=== PATIENT | male | born 1960 | race Caucasian/White ===

== ENCOUNTER 2024-03-26 13:43 | Emergency (ER) | payer MEDICARE, MEDICAID, SELFPAY ==
[2024-03-26 13:58] VITALS: BP 156/109
--- NOTE | 2024-03-26 14:34 | ED.GENMED ---
History of Present Illness
General
Chief Complaint: Crisis Evaluation
Source: other (mold worker)
Time Seen by Provider: 03/26/24 14:03
Travel History
Have you had any contact with someone who has COVID-19?: No
Do you have any symptoms of coronavirus? Fever > 100 degrees, chills, cough, shortness of breath, sore throat, loss of taste or smell, muscle aches, or headache?: No
History of Present Illness
History of Present Illness:
53-year-old male apparently lives in [place] but police were called while he was getting his car and [employer]. Patient apparently has been having flight of ideas might have been hitting his car with a [place] hammer. Unknown medical history.
Patient has no specific complaints.
Past History
Past History
ED Past Medical History: None and Psychiatric (Manic psychosis 2014)
Social History
Tobacco: Non-smoker
Alcohol: None
Family History
Family History: Unable to obtain
Review of Systems
Review of Systems
All Other Systems: Not applicable
Respiratory: Reports no symptoms
Cardiac: Reports no symptoms
ABD/GI: Reports no symptoms
Phy Exam
Physical Exam
Physical Exam:
GENERAL: Alert and oriented in no apparent distress
EYE: Orbits normal.
NECK: Supple
CARDIAC: Regular rate and rhythm without any obvious murmurs.
LUNGS: Clear breath sounds,normal
ABDOMEN: Soft, without focal tenderness or distention
NEUROLOGICAL: Alert and oriented , grossly non-focal
SKIN: Warm and dry, no rash or lesion, no discoloration, skin intact.
MUSCULOSKELETAL: No edema,no deformity.Good color
PSYCH: Very flight of ideas
Course
Orders/Labs/Results
Orders:
Orders
03/26/24 14:50
Alcohol Urgent
Basic Metabolic Panel Urgent
Complete Blood Count/With Diff Urgent
Urine Drug Abuse Screen Urgent
Date Specimen was Collected: 03/26/24
Time Specimen was Collected: 14:24
Abnormal Lab Results
03/26/24
14:50
MCH 31.4 H pg
(27.0-31.0)
Absolute Neuts (auto) 8.1 H 10^3/uL
(1.4-6.5)
Absolute Monos (auto) 0.8 H 10^3/uL
(0.1-0.6)
Neutrophils % 76.9 H %
(42.2-75.2)
Lymphocytes % 14.3 L %
(20.5-51.1)
Potassium 5.2 H mmol/L
(3.5-5.1)
BUN 24 H mg/dl
(9-20)
Glucose 216 H mg/dl
(70-99)
Calcium 10.6 H mg/dl
(8.4-10.2)
Ur Tricyclics Screen Positive H
(Negative)
03/26/24 14:50
03/26/24 14:50
Vital Signs
Initial and Last Documented VS:
Initial Vital Signs
Temp Pulse Resp BP Pulse Ox
98.1 F 83 20 156/109 99
03/26/24 13:58 03/26/24 13:58 03/26/24 13:58 03/26/24 13:58 03/26/24 13:58
Last Documented Vital Signs
Temp Pulse Resp BP Pulse Ox
98.1 F 90 19 144/101 97
03/26/24 13:58 03/26/24 16:01 03/26/24 16:01 03/26/24 16:01 03/26/24 16:01
*Critical Care Note
Total Time (30-74mins, 75-104mins- exclusive of procedures): Not Applicable
Data Reviewed
Review of Other/Old Records Reveals: Other (Psychiatry consult 2015)
Update Note
Update Note:
Medically stable and medically cleared. Minimal hyperglycemia. This just wants follow-up
ED Attending Note
-
Portions of this chart may have been created with voice recognition software.� Occasional wrong word or��sound alike� substitutions may have occurred due to the inherent limitations of voice recognition software.
Discharge Plan
Departure
Patient Disposition: Psych Facility
Date of Disposition: 03/26/24
Time of Disposition: 15:46
Patient with high blood pressure during this ER visit?: Yes
Discharge Problem:
Manic psychosis, Hyperglycemia
Instructions: High Blood Sugar, Adult ED, BLOOD PRESSURE
Referrals:
UNKNOWN - PT NOT,INTERVIEWE [Family Provider] -
Activity Restrictions/Additional Instructions:
Follow your blood sugar up with your regular physician
Discharge Date and Time
Print Language: BAHRAINI
[2024-03-26 15:01] LABS: % Basophils 0.3 % (0-2); % Eosinophils 0.4 % (0-6); % Immature Granulocytes 0.4 % (0-0.5); % Lymphocytes 14.3 % (20.5-51.1); % Monocytes 7.7 % (1.7-9.3); % Neutrophils 76.9 % (42.2-75.2); Absolute Lymphocytes 1.5 10^3/uL (1.2-3.4); Absolute Monocytes 0.8 10^3/uL (0.1-0.6); Absolute Neutrophils 8.1 10^3/uL (1.4-6.5); Hematocrit 44.8 % (39.0-52.0); Hemoglobin 15.6 g/dL (13.0-18.0); Mean Corp Hgb Conc. 34.8 g/dL (33.0-37.0); Mean Corpuscular Hgb 31.4 pg (27.0-31.0); Mean Corpuscular Volume 90.1 fL (80.0-94.0); Mean Platelet Volume 9.4 fL (7.4-10.4); Nucleated Red Blood Cells % 0 % (-); Platelet Count 326 10^3/uL (130-400); Red Blood Cell Count 4.97 10^6/uL (4.70-6.10); Red Cell Dist. Width 12.7 % (11.5-14.5); White Blood Cell Count 10.5 10^3/uL (4.8-10.8)
[2024-03-26 15:16] LABS: Amphetamines Negative (Negative); Barbiturates Negative (Negative); Benzodiazepines Negative (Negative); Buprenorphine Negative (Negative); Cocaine Negative (Negative); Marijuana Negative (Negative); Methadone Negative (Negative); Methamphetamines Negative (Negative); Opiates Negative (Negative); Phencyclidine Negative (Negative); Tricyclic Antidepressants Positive (Negative)
[2024-03-26 15:41] LABS: Alcohol None Detected; Blood Urea Nitrogen 24 mg/dl (9-20); Calcium 10.6 mg/dl (8.4-10.2); Carbon Dioxide 23 mmol/L (22-30); Chloride 107 mmol/L (98-107); Glucose 216 mg/dl (70-99); Potassium 5.2 mmol/L (3.5-5.1); Sodium 143 mmol/L (135-145); eGFR > 60.00
[2024-03-26 16:01] VITALS: BP 144/101
== END 2024-03-26 16:30 ==
LOC: EMR 13:43
PROVIDERS: EMERGENCY PHYSICIAN Emergency Medicine
DX: F30.2 Manic episode, severe with psychotic symptoms (principal); R03.0 Elevated blood-pressure reading, without diagnosis of hypertension; Z53.29 Procedure and treatment not carried out because of patient's decision for other reasons; R73.9 Hyperglycemia, unspecified; Z88.8 Allergy status to other drugs, medicaments and biological substances
CPT/HCPCS: 99283; 80048; 80306; 82077; 85025

== ENCOUNTER 2024-03-26 23:57 | Emergency (ER) | payer MEDICARE, MEDICAID, SELFPAY ==
[2024-03-27 00:03] VITALS: BP 151/95
[2024-03-27] MEDS: ZYPREXA 10 MG IM (00:19)
--- NOTE | 2024-03-27 00:25 | ED.GENMED ---
History of Present Illness
General
Chief Complaint: Change in Mental Status
Time Seen by Provider: 03/27/24 00:09
Travel History
Have you had any contact with someone who has COVID-19?: Unable to Answer
Do you have any symptoms of coronavirus? Fever > 100 degrees, chills, cough, shortness of breath, sore throat, loss of taste or smell, muscle aches, or headache?: Unable to Answer
History of Present Illness
History of Present Illness:
HPI: Patient was found walking the streets with nonsensical speech. He was sent here for further evaluation. He reportedly takes Seroquel and Depakote. He is currently is providing no meaningful history. The patient was seen here earlier in the
day and initially was going to be placed as a 201 but he either eloped or left AMA.
EXAM:
GENERAL: Nonsensical speech
HEENT: Moist oral mucosa
CARDIOVASCULAR: No murmurs, normal heart rate, regular rhythm, No chest wall tenderness
PULMONARY: No respiratory distress, breath sounds are clear and equal
ABDOMEN: Soft with no peritoneal signs, no tenderness
NEUROLOGIC: Excellent strength all extremities, no coordination deficits
PSYCHIATRIC: The patient clearly lacks insight and judgment, does not have the capacity to make his own decisions, initially started talking about 'Taoism reformist'
EXTREMITIES: Nontender, no edema, moves all extremities equally
SKIN: No rash, no lesions
TIME OF INITIAL ENCOUNTER: 12:15 AM
NUMBER AND COMPLEXITY OF PROBLEMS ADDRESSED AT THE ENCOUNTER
� Chronic conditions affecting care: Unclear past medical history but reportedly takes Seroquel and Depakote
� Acute Exacerbation and/or Progression of Chronic Illness: Unclear timing of symptoms
� Differential Diagnosis includes: Acute psychosis, lab abnormality, substance use
AMOUNT AND/OR COMPLEXITY OF DATA TO BE REVIEWED AND ANALYZED
� I performed an independent evaluation of and my interpretation is:
EKG:
CT:
X-rays:
Laboratory Studies: White count 8.5, hemoglobin 13.7, bicarb 17, BUN 30, glucose 294, Depakote 31, alcohol undetected
Other:
� Review of other/old records: Yesterday, UDS was positive for tricyclics; I reviewed psychiatry note from 2014 and at that time he was here as a 302 and was manic psychotic at that time
� Clinical information was obtained by an independent historian: EMS
� Prescriptions/Medications Considered but not given:
� Further testing considered but not performed:
RISK OF COMPLICATIONS AND/OR MORBIDITY OR MORTALITY OF PATIENT MANAGEMENT
� Social determinants of health affecting care: Unclear about his social situation at this time including where he lives but there is report that he is living in [place]
� Discussion with other providers: Crisis
� Escalation of care including admission/observation vs risk of discharge considered: 302 petition from earlier indicated the patient was outside of a car [employer] business and started striking the windshield with a crowbar.
Low bicarb noted along with higher BUN and high blood sugar. He has been very difficult essentially refusing to be accessed. Trying to rehydrate orally. The patient did tolerate water orally. Seems to be a delay with response to Zyprexa however
as of 3:20 AM along with IM Ativan, he is much more calm. Reassessment at 5:30 AM, the patient remains calm/sleeping in no distress. Crisis currently bed searching.
Past History
Past History
ED Past Medical History: None and Psychiatric (Manic psychosis 2014)
Social History
Tobacco: Non-smoker
Alcohol: None
Family History
Family History: Unable to obtain
Phy Exam
Physical Exam
Physical Exam:
See HPI
Course
Orders/Labs/Results
Orders:
Orders
03/27/24 00:07
Alcohol Urgent
Complete Blood Count/With Diff Urgent
Comprehensive Metabolic Panel Urgent
Depakane Urgent
03/27/24 00:13
Olanzapine [Zyprexa] 10 mg .ROUTE .STK-MED ONE
03/27/24 00:14
Olanzapine [Zyprexa] 10 mg IM NOW STA
03/27/24 00:15
Sterile Water [Sterile Water For Injection] 10 ml .ROUTE .STK-MED ONE
03/27/24 00:28
Add On- LAB Urgent
Tests Added?: alcohol
03/27/24 00:43
Crisis Consult Urgent
Reason for Consult: psychosis
03/27/24 01:43
Lorazepam [Ativan] 1 mg IM NOW STA
Abnormal Lab Results
03/27/24
00:07
RBC 4.37 L 10^6/uL
(4.70-6.10)
MCH 31.4 H pg
(27.0-31.0)
Abs Immat Gran (auto) 0.1 H 10^3/uL
(0-0.05)
Absolute Monos (auto) 0.9 H 10^3/uL
(0.1-0.6)
Immature Gran % 1.2 H %
(0-0.5)
Lymphocytes % 18.4 L %
(20.5-51.1)
Monocytes % 10.8 H %
(1.7-9.3)
Carbon Dioxide 17 L mmol/L
(22-30)
BUN 30 H mg/dl
(9-20)
Glucose 294 H mg/dl
(70-99)
Valproic Acid 30.9 L ug/ml
(50.0-120.0)
03/27/24 00:07
03/27/24 00:07
Vital Signs
Initial and Last Documented VS:
Initial Vital Signs
Pulse Resp BP Pulse Ox
122 22 151/95 94
03/27/24 00:03 03/27/24 00:03 03/27/24 00:03 03/27/24 00:03
Last Documented Vital Signs
Temp Pulse Resp BP Pulse Ox
98.9 F 90 20 151/95 96
03/27/24 00:52 03/27/24 04:35 03/27/24 04:35 03/27/24 00:03 03/27/24 04:35
*Critical Care Note
Total Time (30-74mins, 75-104mins- exclusive of procedures): Not Applicable
ED Attending Note
-
Portions of this chart may have been created with voice recognition software.� Occasional wrong word or��sound alike� substitutions may have occurred due to the inherent limitations of voice recognition software.
Discharge Plan
Departure
Patient Disposition: Psych Facility
Date of Disposition: 03/27/24
Time of Disposition: 01:27
Discharge Problem:
Psychosis
Prescriptions:
No Action
Unobtainable
0
Referrals:
UNKNOWN - PT DOES,NOT KNOW [Family Provider] -
Interventions
Interventions:
*Risk Screen - Suicide Last Done: 03/27/24 00:23
*General Assessment Last Done: 03/27/24 00:23
*Neglect/Abuse Screening Last Done: 03/27/24 00:23
ED- Pulmonary Assessment Last Done: 03/27/24 03:05
ED-Psychological Assessment Last Done: 03/27/24 00:26
ED- Neurological Assessment Last Done: 03/27/24 00:26
ED- Cardiac Assessment Last Done: 03/27/24 03:05
Discharge Date and Time
Print Language: BULGARIAN
[2024-03-27 00:38] LABS: Depakane 30.9 ug/ml (50.0-120.0)
[2024-03-27 00:41] LABS: % Basophils 0.2 % (0-2); % Eosinophils 0.4 % (0-6); % Immature Granulocytes 1.2 % (0-0.5); % Lymphocytes 18.4 % (20.5-51.1); % Monocytes 10.8 % (1.7-9.3); Absolute Immature Granulocytes 0.1 10^3/uL (0-0.05); Absolute Lymphocytes 1.6 10^3/uL (1.2-3.4); Absolute Monocytes 0.9 10^3/uL (0.1-0.6); Absolute Neutrophils 5.9 10^3/uL (1.4-6.5); Hematocrit 39.3 % (39.0-52.0); Hemoglobin 13.7 g/dL (13.0-18.0); Mean Corp Hgb Conc. 34.9 g/dL (33.0-37.0); Mean Corpuscular Hgb 31.4 pg (27.0-31.0); Mean Corpuscular Volume 89.9 fL (80.0-94.0); Mean Platelet Volume 9.8 fL (7.4-10.4); Nucleated Red Blood Cells % 0 % (-); Platelet Count 285 10^3/uL (130-400); Red Blood Cell Count 4.37 10^6/uL (4.70-6.10); Red Cell Dist. Width 12.9 % (11.5-14.5); White Blood Cell Count 8.5 10^3/uL (4.8-10.8)
[2024-03-27 00:48] LABS: ALT (SGPT) 24 U/L (0-50); AST (SGOT) 29 U/L (17-59); Albumin 4.3 g/dl (3.5-5.0); Alkaline Phosphatase 84 U/L (38-126); Blood Urea Nitrogen 30 mg/dl (9-20); Calcium 10.1 mg/dl (8.4-10.2); Carbon Dioxide 17 mmol/L (22-30); Chloride 106 mmol/L (98-107); Glucose 294 mg/dl (70-99); Potassium 3.9 mmol/L (3.5-5.1); Sodium 138 mmol/L (135-145); Total Bilirubin 0.6 mg/dl (0.2-1.3); Total Protein 6.6 g/dl (6.3-8.2); eGFR > 60.00
[2024-03-27 01:03] LABS: Alcohol None Detected
[2024-03-27] MEDS: ATIVAN 1 MG IM (01:47)
[2024-03-27 14:10] VITALS: BP 143/85
--- NOTE | 2024-03-27 15:30 | W.PN.UPDATE ---
Update Note
Progress Note Update
63 y/o man who has presented to in past in manic psychotic state came to hospital yesterday, left and was brought back. Apparently was on top of a car with a crowbar. Is 201 voluntary with backup 302. Apparently difficulty confirming
his insurance.
He has been given Zyprexa.
Pt. has hypertension and diabetes. unclear if these are being treated. Reports being on Depakote ER 2000 mg. HS and Seroquel 1200 mg HS (which is highly unlikely).. 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
Pt. was asleep in Crisis I. When I aroused him he was able to converse, but speech is garbled and he is unable to provide too much useful information. He said he has epilepsy and not bipolar disorder. Unable to obtain much else from him
I will order Depakote ER 2000 mg. HS; Seroquel 300 mg. HS for now. Will order valproate level and CMP. May need stabilization of blood sugar.
Diagnosis: Bipolar Disorder, Manic, with psychotic features.
[2024-03-27 17:13] LABS: ALT (SGPT) 27 U/L (0-50); AST (SGOT) 35 U/L (17-59); Albumin 4.3 g/dl (3.5-5.0); Alkaline Phosphatase 86 U/L (38-126); Blood Urea Nitrogen 23 mg/dl (9-20); Calcium 10.1 mg/dl (8.4-10.2); Carbon Dioxide 28 mmol/L (22-30); Chloride 103 mmol/L (98-107); Glucose 279 mg/dl (70-99); Potassium 4.6 mmol/L (3.5-5.1); Sodium 139 mmol/L (135-145); Total Bilirubin 0.6 mg/dl (0.2-1.3); Total Protein 6.7 g/dl (6.3-8.2); eGFR > 60.00
[2024-03-27] MEDS: SEROQUEL 300 MG PO (21:19)
[2024-03-27] MEDS: DEPAKOTE ER (24 HR RELEASE) 2000 MG PO (21:19)
[2024-03-27 21:24] VITALS: BP 139/91
[2024-03-28 06:28] LABS: Depakane 85.5 ug/ml (50.0-120.0)
[2024-03-28 07:32] VITALS: BP 147/97
[2024-03-28 08:00] VITALS: BP 125/76; BMI 31.2
--- NOTE | 2024-03-28 15:16 | W.PN.UPDATE ---
Update Note
Progress Note Update
Mn likely with Bipolar Disorder Juany for follow-up Is on 302 awaiting a bed which may be difficult as he is from [place] and has exhausted his Medicare days. Today he is out of bed, talkative and friendly. Mood hypomanic. Delusional about his
condition. Possible he has mild TD.
Confirmed his mother has dementia. 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
Valproate level 85.5. Continue Seroquel 300 mg and Depakote ER 2000 mg. both HS.
Will order FBS and A1c for tomorrow morning.
Psychiatry will follow.
[2024-03-28 21:31] VITALS: BP 160/100
[2024-03-28] MEDS: SEROQUEL 300 MG PO (22:04)
[2024-03-28] MEDS: DEPAKOTE ER (24 HR RELEASE) 2000 MG PO (22:05)
[2024-03-29 06:35] VITALS: BP 149/90
[2024-03-29 06:50] LABS: Blood Urea Nitrogen 15 mg/dl (9-20); Calcium 9.8 mg/dl (8.4-10.2); Carbon Dioxide 25 mmol/L (22-30); Chloride 105 mmol/L (98-107); Estimated Creatinine Clearance 107 ml/min; Glucose 279 mg/dl (70-99); Potassium 4.3 mmol/L (3.5-5.1); Sodium 138 mmol/L (135-145); eGFR > 60.00
[2024-03-29 10:16] LABS: Glycohemoglobin (HgbA1c) 9.6 % (4.0-5.6)
--- NOTE | 2024-03-29 13:30 | ED.CRISIS ---
ED Crisis Note
ED Crisis Note
Subjective:
No acute complaints. Feels well
Objective:
Sitting up no distress speech normal. Nontoxic.
Assessment/Plan:
Labs show elevated blood sugar. Patient clearly has had chronic hyperglycemia. It looks like he likely has been on metformin. Will start twice a day and follow Accu-Cheks
--- NOTE | 2024-03-29 14:56 | W.PN.UPDATE ---
Update Note
Progress Note Update
Pt seen, reviewed 302. Pt states he did not sleep for a couple nights, was not consistent with taking mediations. He reports long history of Bipolar I d/o, states he has been on Depakote at current dose of 2000 mg HS for '30 years.' Pt reports he
was stable for 12 years without hospitalizations on Serentil- antipsychotic med no longer available since 2003 (confirmed by internet search). Pt states he was tried on Thorazine, Invega with long-acting injection, and others, but does very well on
Seroquel. Pt advised of risk of increased blood sugar, reports he is on Metformin and Metoprolol, states he is 'accepting the inevitable'. Pt mildly tangential, expansive, religiously preoccupied, but calm, cooperative, pleasant. Pt joking about
'Iranian chess' during our conversation. 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
Imp: Bipolar disorder, manic, improving with med resumption. Pt does not present the need for a 303- involuntary commitment extension
Rec: continue to stabilize on 302. Pt has not been placed due to having only [facility] coverage. Will likely recommend discharge tomorrow if current improvement continues
will follow
[2024-03-29 17:19] LABS: Glucose - Point of Care 394 mg/dl (70-99)
[2024-03-29] MEDS: GLUCOPHAGE 500 MG PO (17:21)
[2024-03-29] MEDS: SEROQUEL 300 MG PO (22:42)
[2024-03-29] MEDS: DEPAKOTE ER (24 HR RELEASE) 2000 MG PO (22:43)
[2024-03-29 22:48] VITALS: BP 135/83
[2024-03-30] MEDS: GLUCOPHAGE 500 MG PO (09:09)
[2024-03-30 09:14] VITALS: BP 137/91
[2024-03-30 09:15] LABS: Glucose - Point of Care 192 mg/dl (70-99)
--- NOTE | 2024-03-30 12:21 | W.PN.UPDATE ---
Update Note
Progress Note Update
Pt seen, continues to improve. Pt alert, oriented, with pleasant affect, interacting appropriately. Speech coherent, thought goal-directed. Pt cooperative with treatment, taking medications, denies side effects/none evident. Reviewed with Crisis
staff, who confirmed pt's outpatient program. Pt states his keys were placed outside of his home. No signs of acute masha or psychosis at this point.
Imp: Bipolar disorder, manic, stabilized with medication resumption. Pt does not present the need for a 303/continued involuntary commitment
Rec: Pt is psychiatrically stable for discharge from the 302, to follow up with outpatient mental health provider
== END 2024-03-30 14:08 ==
LOC: EMR 23:57
PROVIDERS: Psychiatry & Neurology Psychiatry; EMERGENCY PHYSICIAN Emergency Medicine; OTHER PHYSICIAN Psychiatry & Neurology Psychiatry
DX: F29 Unspecified psychosis not due to a substance or known physiological condition (principal); F31.2 Bipolar disorder, current episode manic severe with psychotic features; E11.65 Type 2 diabetes mellitus with hyperglycemia; Z91.128 Patient's intentional underdosing of medication regimen for other reason; I10 Essential (primary) hypertension; Z88.8 Allergy status to other drugs, medicaments and biological substances
CPT/HCPCS: 99284; 96372 ×2; 80048; 80053; 80164; 80306; 82077; 82962; 83036; 85025; J2358